=== PATIENT | male | born 1950 | race African-American/Black ===

== ENCOUNTER 2021-08-13 18:02 | Emergency (ER) | payer OTHER ==
[~2021-08-13] VITALS: Ht 172.7 cm; Wt 65.8 kg
--- NOTE | ~2021-08-13 | EMS ---
[facility] [address] [place] [address] EMS Patient Care Report Name: ALAYNA FITCH Room #: DEP NICOLE Chua#: [id number] Admission: 08/13/21 Attend Phys: Discharge: 08/14/21 Date of : 50 Report #: [id number] THIS REPORT FOR: //name// Report Transmitted: 08/15/2021 11:06 EMS Care Summary [place], [place]/[facility] Incident [id number] @ 08/13/2021 17:29 Incident Location [id number] [place] [address] 515 Patient ALAYNA FITCH Male, 70 Years 1950 Patient Address [id number] [place] [address] [address] [place] [address] Patient History Diabetes,Hypertension (HTN),Seizures, Patient Allergies No known allergies, Patient Medications Amlodipine, Potassium, Atorvastatin, Pantoprazole, Humalog, Duloxetine, Lisinopril, Carvedilol, Chief Complaint Tired Disposition Transported No Lights/[place] Dispatch Reason Sick Person Transported To [facility] Narrative Upon arrival PT was sitting in the upright position on bed. [place] staff stated that PT was unable to stand by himself and is showing signs of lethargy. PT [facility] [address] [place] [address] EMS Patient Care Report Name: ALAYNA FITCH Room #: DEP NICOLE Chua#: [id number] Admission: 08/13/21 Attend Phys: Discharge: 08/14/21 Date of : 50 Report #: [id number] stated he was just tired but still agreed to transport. PT was assisted to stretcher and was then taken to back of ambulance for further medical evaluation and intervention. PT was then monitored while en route to hospital for any change in condition. Initial Vitals @17:41P: 111,R: 18,BP: 165/81,Pain: 0/10,GCS: 15,SpO2: 96,Revised Trauma: 12, @17:44P: 107,R: 18,BP: 164/80,Pain: 0/10,GCS: 15,CO: 15,SpO2: 97,Revised Trauma: 12, Assessments @17:36MENTAL:No Abnormalities,SKIN:No Abnormalities,HEENT:Head/Face: No Abnormalities,Eyes: No Abnormalities,Neck/Airway: No Abnormalities,LUNG SOUNDS:General: No Abnormalities,Left Upper: No Abnormalities,Right Upper: No Abnormalities,Left Lower: No Abnormalities,Right Lower: No Abnormalities,ABDOMEN:General: No Abnormalities,Left Upper: No Abnormalities,Right Upper: No Abnormalities,Left Lower: No Abnormalities,Right Lower: No Abnormalities,PELVIS//GI:No Abnormalities,EXTREMITIES:Capillary Refill: Right Upper: < 2 Sec,Capillary Refill: Left Upper: < 2 Sec,PULSE:Radial: 2+ Normal,NEURO:No Abnormalities, Impression Altered Mental Status Procedures @17:36 ALS Assessment Response: UnchangedSucceeded Timeline 17:28,Call Received 17:,Dispatch Notified 17:29,Dispatched 17:29,En Route 17:35,On Scene 17:36,At Patient 17:36,ALS Assessment,Response: UnchangedSucceeded, 17:41,BP: 165/81 M,PULSE: 111,RR: 18 R,SPO2: 96 Ox,ETCO2: ,BG: ,PAIN: 0,GCS: 15, 17:44,BP: 164/80 M,PULSE: 107,RR: 18 R,SPO2: 97 Ox,ETCO2: ,BG: ,PAIN: 0,GCS: 15, 17:46,Depart Scene 17:55,At Destination 18:12,Call Closed Disclaimer v1.1 Copyright 2020 [employer] [facility] [address] [place] [address] EMS Patient Care Report Name: ALAYNA FITCH Room #: DEP Toma#: [id number] Admission: 08/13/21 Attend Phys: Discharge: 08/14/21 Date of : 50 Report #: [id number] This EMS Care Summary contains data elements from the applicable legal record (which may be displayed differently). It is designed to provide pertinent information for the following purposes: continuity of care, clinical quality, and state data reporting. The complete legal record is available to ED staff and administrators of the receiving hospital in [employer]'s Patient Tracker. All data is provided "as is."
[2021-08-13 19:43] LABS: ABSOLUTE NEUTROPHILS 12.3 thou/uL (1.4-8.2); BASOPHILS 0.1 % (0.0-2.0); EOSINOPHILS 0.1 % (0.0-3.0); HEMATOCRIT 30.6 % (42.0-52.0); HEMOGLOBIN 9.9 gm/dL (14.0-18.0); MCH 27.2 pg (26.0-34.0); MCHC 32.2 g/dL (28.0-37.0); MCV 84.5 fL (80.0-100.0); PLATELET COUNT 306 thou/uL (150-400); POLYS 89.8 % (36.0-66.0); RBC 3.62 mil/uL (4.50-6.00); RDW 15.4 % (10.5-14.5); WBC 13.7 thou/uL (4.0-11.0)
[2021-08-13 19:46] LABS: CALCIUM 9.3 mg/dL (8.5-10.1); CREATININE 2.2 mg/dL (0.7-1.3); POTASSIUM 3.5 mmol/L (3.5-5.1)
[2021-08-13 19:55] LABS: URINE BILIRUBIN NEGATIVE (Negative); URINE BLOOD TRACE (Negative); URINE CLARITY CLEAR; URINE COLOR YELLOW; URINE GLUCOSE-RANDOM* NEGATIVE (Negative); URINE KETONES NEGATIVE (Negative); URINE NITRITE-REFLEX NEGATIVE (Negative); URINE PROTEIN (DIPSTICK) TRACE (Negative); URINE SPECIFIC GRAVITY 1.015 (1.005-1.035); URINE UROBILINOGEN 0.2 E.U./dl (0.2-1.0)
[2021-08-13 20:12] LABS: URINE LEUKOCYTES-REFLEX 1+ (Negative)
[2021-08-13 20:19] LABS: BACTERIA-REFLEX 1-9 Few /HPF (None Seen); CASTS None Seen /LPF (None Seen); CRYSTALS None Seen /LPF (None Seen); SQUAMOUS 4-10 Moderate /LPF (0-3); URINE RBC 1-2 Rare /HPF (NONE SEEN); URINE WBC-REFLEX 0-5 Rare /HPF (0-5)
[2021-08-14 00:01] VITALS: BP 179/89
--- NOTE | 2021-08-14 13:24 | EKG ---
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 : 1950 Requested By: Mirza Odonnell Order Number: [id number] MD: Mj Lipscomb Measurements Intervals [place] Rate: 101 P: 84 [place]: 159 QRS: -48 QRSD: 116 T: 86 QT: 379 QTc: 492 Interpretive Statements Sinus tachycardia LVH with IVCD, LAD and secondary repol abnrm Anterior ST elevation, probably due to LVH No previous ECG available for comparison Electronically Signed On 08-14-2021 13:24:37 MANAGER OF HOUSEKEEPING by jM Lipscomb [email or web address] <ELECTRONICALLY SIGNED> By: Mj Lipscomb MD, [facility] 08/14/21 1324 1847 184 Mj Lipscobm MD, FACC /EPI
== END 2021-08-14 00:05 | disposition home or self-care (01) ==
LOC: ER 18:02
PROVIDERS: Emergency Medicine
DX: R50.9 Fever, unspecified (principal); Z20.822 Contact with and (suspected) exposure to COVID-19; R53.1 Weakness; E78.5 Hyperlipidemia, unspecified; I25.10 Atherosclerotic heart disease of native coronary artery without angina pectoris; I12.9 Hypertensive chronic kidney disease with stage 1 through stage 4 chronic kidney disease, or unspecified chronic kidney disease; E11.22 Type 2 diabetes mellitus with diabetic chronic kidney disease; N18.2 Chronic kidney disease, stage 2 (mild)

== ENCOUNTER 2021-09-23 08:23 | Emergency (ER) | payer OTHER ==
[~2021-09-23] VITALS: Ht 170.2 cm; Wt 77.3 kg
--- NOTE | ~2021-09-23 | EMS ---
[address] [address] EMS Patient Care Report Name: ALAYNA FITCH Room #: DEP NICOLE Chua#: [id number] Admission: 09/23/21 Attend Phys: Discharge: 09/23/21 Date of : 50 Report #: [id number] THIS REPORT FOR: //name// Report Transmitted: 09/26/2021 10:14 EMS Care Summary [place], [place]/[facility] Incident [id number] @ 09/23/2021 07:56 Incident Location [address] [place] [address] 515 Patient ALAYNA FITCH Male, 70 Years 1950 Patient Address [address] [place] [address] [address] [place] [address] Patient History Diabetes,Hypertension (HTN),Seizures, Patient Allergies Iodine,Fish allergy,Shrimp allergy, Patient Medications Pantoprazole, Lisinopril, Potassium, Duloxetine, Amlodipine, Atorvastatin, Carvedilol, Humalog, Chief Complaint lips swelling Disposition Transported No Lights/[place] Dispatch Reason Allergic Reaction/Stings Transported To [facility] Narrative M36 dispatched on allergies. M36 arrived to long-term to find PT seated on edge of bed. PT stated lip and tongue swelling as chief complaint. PT stated [address] [address] EMS Patient Care Report Name: ALAYNA FITCH Room #: DEP ER Toma#: [id number] Admission: 09/23/21 Attend Phys: Discharge: 09/23/21 Date of : 50 Report #: [id number] history of fish and shrimp allergies. PT reported eating beef jerky before bed last night. PT stated he woke up with swollen lips around 0530 this morning. [facility] staff stated PT was "given one injection of EPI and benedryl between 5:30 and 6:00." PT reported feeling itchy around neck and upper torso. PT stated pain 8/10. PT stated pain in back. PT stated history of chronic back pain. PT stood and pivoted with cane to stretcher. PT placed surgical mask on self. PT secured with seatbelts. PT vitals monitored during transport. PT report given. PT stood and pivoted to wheelchair without assistance. PT care and belongings transferred to ER staff in Triage at [facility] without incident. M36 placed back in service. Initial Vitals @08:18P: 92,R: 18,BP: 152/76,Pain: 8/10,GCS: 15,CO: 6,SpO2: 97,Revised Trauma: 12, @08:13P: 94,R: 18,BP: 176/93,Pain: 8/10,GCS: 15,CO: 5,SpO2: 98,Revised Trauma: 12, Assessments @08:15MENTAL:Place Oriented,Time Oriented,Event Oriented,Person Oriented,SKIN:HEENT:Head/Face: Swelling,LUNG SOUNDS:ABDOMEN:PELVIS//GI:EXTREMITIES:PULSE:Radial: 2+ Normal,NEURO:Slurred Speech, Impression Allergic Reaction Procedures @08:10 ALS Assessment Response: UnchangedSucceeded Timeline 07:53,Call Received 07:53,Dispatch Notified 07:56,Dispatched 07:58,En Route 08:05,On Scene 08:07,At Patient 08:10,ALS Assessment,Response: UnchangedSucceeded, 08:13,BP: 176/93 M,PULSE: 94,RR: 18 R,SPO2: 98 Ox,ETCO2: ,BG: ,PAIN: 8,GCS: 15, 08:15,Depart Scene 08:18,BP: 152/76 M,PULSE: 92,RR: 18 R,SPO2: 97 Ox,ETCO2: ,BG: ,PAIN: 8,GCS: 15, 08:28,At Destination 08:36,Call Closed Disclaimer [address] [address] EMS Patient Care Report Name: ALAYNA FITCH Room #: DEP Toma#: [id number] Admission: 09/23/21 Attend Phys: Discharge: 09/23/21 Date of : 50 Report #: [id number] v1.1 Copyright 2021 [employer] This EMS Care Summary contains data elements from the applicable legal record (which may be displayed differently). It is designed to provide pertinent information for the following purposes: continuity of care, clinical quality, and state data reporting. The complete legal record is available to ED staff and administrators of the receiving hospital in [employer]'s Patient Tracker. All data is provided "as is."
[2021-09-23] MEDS ORDERED: APAP W/CODEINE1 TA2 PO (08:39)
[2021-09-23] MEDS ORDERED: NORVASC10 MG PO (08:39)
[2021-09-23] MEDS ORDERED: ASA81BEC PO (08:41)
[2021-09-23] MEDS ORDERED: AQUAPHOR HEALIN50 GM TOP (08:41)
[2021-09-23] MEDS ORDERED: FUROSEMIDE 40 M40 MG PO (08:46)
[2021-09-23] MEDS ORDERED: LIPITOR80 MG PO (08:46)
[2021-09-23] MEDS ORDERED: HUMALOG100 UNIT/1 SUBQ (08:47)
[2021-09-23] MEDS ORDERED: GABAPENTIN100 MG PO (08:47)
[2021-09-23] MEDS ORDERED: HYDROCHLOROTHIA25 M1 PO (08:48)
[2021-09-23] MEDS ORDERED: NORCO7.5 PO (08:48)
[2021-09-23] MEDS ORDERED: LANTUS SUBQ (08:49)
[2021-09-23] MEDS ORDERED: METFORMIN HCL500 M3 PO (08:50)
[2021-09-23] MEDS ORDERED: MELATONIN3 M1 PO (08:50)
[2021-09-23] MEDS ORDERED: IMDUR 30 MG TAB30 M1 PO (08:50)
[2021-09-23] MEDS ORDERED: KLOR-CON 1010 MEQ PO (08:51)
[2021-09-23] MEDS ORDERED: PROTONIX40 M3 PO (08:51)
[2021-09-23 13:29] VITALS: BP 170/86
== END 2021-09-23 13:29 | disposition home or self-care (01) ==
LOC: ER 08:23
DX: T78.3XXA Angioneurotic edema, initial encounter (principal); F17.200 Nicotine dependence, unspecified, uncomplicated; Z79.891 Long term (current) use of opiate analgesic; Z79.4 Long term (current) use of insulin; Z79.82 Long term (current) use of aspirin; Z79.899 Other long term (current) drug therapy; Z88.8 Allergy status to other drugs, medicaments and biological substances; Z91.041 Radiographic dye allergy status; Z91.013 Allergy to seafood

== ENCOUNTER 2021-09-30 17:34 | Emergency (ER) | payer OTHER ==
[~2021-09-30] VITALS: Ht 180.3 cm; Wt 78.5 kg
--- NOTE | ~2021-09-30 | EMS ---
[facility] [address] [place] [address] EMS Patient Care Report Name: ALAYNA FITCH Room #: REG NICOLE Chua#: [id number] Admission: 09/30/21 Attend Phys: Discharge: Date of : 50 Report #: [id number] THIS REPORT FOR: //name// Report Transmitted: 09/30/2021 17:42 EMS Care Summary [place], [place]/[facility] Incident [id number] @ 09/30/2021 16:59 Incident Location [id number] [place] [address] RD 515 Patient ALAYNA FITCH Male, 70 Years 1950 Patient Address [id number] [place] [address] [address] [place] [address] Patient History Diabetes,Hypertension (HTN),Seizures, Patient Allergies Iodine,Fish allergy,Shrimp allergy, Patient Medications Atorvastatin, Potassium, Pantoprazole, Humalog, Carvedilol, Duloxetine, Lisinopril, Amlodipine, Chief Complaint altered LOC Disposition Transported No Lights/[place] Dispatch Reason Unconscious/Fainting Transported To [facility] Narrative pt found supine in bed, awakens to sternal rub, diaphoretic. staff reports pt went out w/ friends earlier. he came back and staff was unable to wake pt up [facility] [address] [place] [address] EMS Patient Care Report Name: ALAYNA FITCH Room #: REG NICOLE Chua#: [id number] Admission: 09/30/21 Attend Phys: Discharge: Date of : 50 Report #: [id number] from his afternoon nap. pt is confused, sleeps if undisturbed. he denies illness or rec drug use. he states, "I was just sleeping good". pt is initially confused and does not make any attempt to follow command. tx as listed in flow chart. pt to unit, now able to follow simple commands, denies pain. pupils are constricted but pt denies any rec drug use while out. transport to [facility], report to staff rm 9. Initial Vitals @17:23P: 73,R: 18,BP: 123/72,Pain: 0/10,GCS: 13,Glucose: 176,SpO2: 100,Revised Trauma: 12, @17:26P: 76,R: 18,GCS: 14,SpO2: 100, Assessments @17:09MENTAL:Person Oriented,Confused,Place Oriented,SKIN:Diaphoresis,HEENT:Eyes: Left Pupil: 3-mm,Eyes: Right Pupil: 3-mm,Head/Face: No Abnormalities,LUNG SOUNDS:ABDOMEN:PELVIS//GI:EXTREMITIES:PULSE:Radial: 2+ Normal,NEURO:@17:26MENTAL:Person Oriented,Event Oriented,Place Oriented,SKIN:No Abnormalities,HEENT:LUNG SOUNDS:ABDOMEN:PELVIS//GI:EXTREMITIES:PULSE:NEURO: Impression Altered Mental Status Procedures @17:09 ALS Assessment Response: Unchanged @17:13 Stretcher Response: Unchanged @17:11 3-Lead ECG Response: Unchanged @17:21 IV Therapy - Saline Lock 10cc (20 ga) Site: Hand-Left Response: UnchangedSucceeded Timeline 16:57,Call Received 16:57,Dispatch Notified 16:59,Dispatched 16:59,En Route 17:07,On Scene 17:09,At Patient 17:09,ALS Assessment,Response: Unchanged 17:11,3-Lead ECG,Response: Unchanged 17:13,Stretcher,Response: Unchanged 17:21,IV Therapy - Saline Lock 10cc 20 ga Site: Hand-Left,Response: UnchangedSucceeded, 17:23,BP: 123/72 M,PULSE: 73,RR: 18 R,SPO2: 100 Ox,ETCO2: ,B,PAIN: 0,GCS: 13, 17:23,Depart Scene [address] [address] EMS Patient Care Report Name: ALAYNA FITCH [id number] Admission: 09/30/21 Attend Phys: Discharge: Date of : 50 Report #: [id number] 17:26,BP: / M,PULSE: 76,RR: 18 R,SPO2: 100 Ox,ETCO2: ,BG: ,PAIN: ,GCS: 14, 17:30,At Destination 17:56,Call Closed Disclaimer v1.1 Copyright 2021 [employer] This EMS Care Summary contains data elements from the applicable legal record (which may be displayed differently). It is designed to provide pertinent information for the following purposes: continuity of care, clinical quality, and state data reporting. The complete legal record is available to ED staff and administrators of the receiving hospital in [employer]'s Patient Tracker. All data is provided "as is."
--- NOTE | ~2021-09-30 | EMS ---
[facility] [address] [place] [address] EMS Patient Care Report Name: ALAYNA FITCH Room #: REG NICOLE Chua#: [id number] Admission: 09/30/21 Attend Phys: Discharge: Date of : 50 Report #: [id number] THIS REPORT FOR: //name// Report Transmitted: 09/30/2021 18:45 EMS Care Summary [place], [place]/[facility] Incident [id number] @ 09/30/2021 16:59 Incident Location [id number] [place] [address] [address] Patient ALAYNA FITCH Male, 70 Years 1950 Patient Address [id number] [place] [address] [address] [place] [address] Patient History Diabetes,Hypertension (HTN),Seizures, Patient Allergies Iodine,Fish allergy,Shrimp allergy, Patient Medications Atorvastatin, Potassium, Pantoprazole, Humalog, Carvedilol, Duloxetine, Lisinopril, Amlodipine, Chief Complaint altered LOC Disposition Transported No Lights/[place] Dispatch Reason Unconscious/Fainting Transported To [facility] Narrative pt found supine in bed, awakens to sternal rub, diaphoretic. staff reports pt went out w/ friends earlier. he came back and staff was unable to wake pt up [facility] [address] [place] [address] EMS Patient Care Report Name: ALAYNA FITCH Room #: KYLEIGH Chua#: [id number] Admission: 09/30/21 Attend Phys: Discharge: Date of : 50 Report #: [id number] from his afternoon nap. pt is confused, sleeps if undisturbed. he denies illness or rec drug use. he states, "I was just sleeping good". pt is initially confused and does not make any attempt to follow command. tx as listed in flow chart. pt to unit, now able to follow simple commands, denies pain. pupils are constricted but pt denies any rec drug use while out. transport to [facility], report to staff rm 9. Initial Vitals @17:23P: 73,R: 18,BP: 123/72,Pain: 0/10,GCS: 13,Glucose: 176,SpO2: 100,Revised Trauma: 12, @17:26P: 76,R: 18,GCS: 14,SpO2: 100, Assessments @17:09MENTAL:Person Oriented,Confused,Place Oriented,SKIN:Diaphoresis,HEENT:Eyes: Left Pupil: 3-mm,Eyes: Right Pupil: 3-mm,Head/Face: No Abnormalities,LUNG SOUNDS:ABDOMEN:PELVIS//GI:EXTREMITIES:PULSE:Radial: 2+ Normal,NEURO:@17:26MENTAL:Person Oriented,Event Oriented,Place Oriented,SKIN:No Abnormalities,HEENT:LUNG SOUNDS:ABDOMEN:PELVIS//GI:EXTREMITIES:PULSE:NEURO: Impression Altered Mental Status Procedures @17:09 ALS Assessment Response: Unchanged @17:13 Stretcher Response: Unchanged @17:11 3-Lead ECG Response: Unchanged @17:21 IV Therapy - Saline Lock 10cc (20 ga) Site: Hand-Left Response: UnchangedSucceeded Timeline 16:57,Call Received 16:57,Dispatch Notified 16:59,Dispatched 16:59,En Route 17:07,On Scene 17:09,At Patient 17:09,ALS Assessment,Response: Unchanged 17:11,3-Lead ECG,Response: Unchanged 17:13,Stretcher,Response: Unchanged 17:21,IV Therapy - Saline Lock 10cc 20 ga Site: Hand-Left,Response: UnchangedSucceeded, 17:23,BP: 123/72 M,PULSE: 73,RR: 18 R,SPO2: 100 Ox,ETCO2: ,B,PAIN: 0,GCS: 13, 17:23,Depart Scene [address] [address] EMS Patient Care Report Name: ALAYNA FITCH Room #: REG [place].#: [id number] Admission: 09/30/21 Attend Phys: Discharge: Date of : 50 Report #: [id number] 17:26,BP: / M,PULSE: 76,RR: 18 R,SPO2: 100 Ox,ETCO2: ,BG: ,PAIN: ,GCS: 14, 17:30,At Destination 17:56,Call Closed Disclaimer v1.1 Copyright 2021 [employer] This EMS Care Summary contains data elements from the applicable legal record (which may be displayed differently). It is designed to provide pertinent information for the following purposes: continuity of care, clinical quality, and state data reporting. The complete legal record is available to ED staff and administrators of the receiving hospital in [facility]'s Patient Tracker. All data is provided "as is."
[~2021-09-30 17:34] MED LIST: APAP W/CODEINE1 TA2 PO; AQUAPHOR HEALIN50 GM TOP; ASA81BEC PO; FUROSEMIDE 40 M40 MG PO; GABAPENTIN100 MG PO; HUMALOG100 UNIT/1 SUBQ; HYDROCHLOROTHIA25 M1 PO; IMDUR 30 MG TAB30 M1 PO; KLOR-CON 1010 MEQ PO; LANTUS SUBQ; LIPITOR80 MG PO; MELATONIN3 M1 PO; METFORMIN HCL500 M3 PO; NORCO7.5 PO; NORVASC10 MG PO; PROTONIX40 M3 PO
[2021-09-30] MEDS ORDERED: LISINOPRIL20 MG PO (18:17)
[2021-09-30 18:20] LABS: ABSOLUTE NEUTROPHILS 5.6 thou/uL (1.4-8.2); BASOPHILS 0.3 % (0.0-2.0); EOSINOPHILS 0.9 % (0.0-3.0); HEMATOCRIT 29.2 % (42.0-52.0); HEMOGLOBIN 9.5 gm/dL (14.0-18.0); LYMPHOCYTES 25.7 % (24.0-44.0); MCH 26.6 pg (26.0-34.0); MCHC 32.7 g/dL (28.0-37.0); MCV 81.1 fL (80.0-100.0); MONOCYTES 6.7 % (1.0-8.0); PLATELET COUNT 346 thou/uL (150-400); POLYS 66.4 % (36.0-66.0); RBC 3.59 mil/uL (4.50-6.00); RDW 16.2 % (10.5-14.5); WBC 8.5 thou/uL (4.0-11.0)
[2021-09-30 18:25] LABS: POTASSIUM 3.9 mmol/L (3.5-5.1)
[2021-09-30 18:35] LABS: ALBUMIN 3.5 g/dL (3.4-5.0); TOTAL BILIRUBIN 0.3 mg/dL (0.2-1.0); TOTAL PROTEIN 7.8 g/dL (6.4-8.2)
[2021-09-30 19:37] VITALS: BP 123/70
[2021-09-30] MEDS ORDERED: PAIN RELIEVER325 MG PO (19:49)
[2021-09-30] MEDS ORDERED: BENADRYL25 MG PO (19:50)
[2021-09-30] MEDS ORDERED: ZOFRAN ODT4 MG PO (20:42)
--- NOTE | 2021-10-01 07:52 | EKG ---
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 Filler: Eris PATEL : 1950 Requested By: Naya Mendoza Order Number: [id number] MD: Mj Lipscomb Measurements Intervals [place] Rate: 85 P: 18 [place]: 149 QRS: -45 QRSD: 120 T: 81 QT: 396 QTc: 471 Interpretive Statements Sinus rhythm Probable left atrial enlargement Borderline ST elevation, anterior leads Compared to ECG 08/13/2021 18:47:19 Intraventricular conduction delay no longer present Left ventricular hypertrophy no longer present Early repolarization no longer present ST (T wave) deviation still present Electronically Signed On 10-01-2021 7:52:05 COMPRESSOR OPERATOR ADJUSTER by Mj Lipscomb [email or web address] <ELECTRONICALLY SIGNED> By: Mj Lipscomb MD, FACC 10/01/21 0752 1750 1750 Mj Lipscomb MD, FAC /EPI
== END 2021-09-30 21:50 ==
LOC: ER 17:34
PROVIDERS: Physician Assistant
DX: R11.10 Vomiting, unspecified (principal); Z20.822 Contact with and (suspected) exposure to COVID-19; N18.9 Chronic kidney disease, unspecified; K44.9 Diaphragmatic hernia without obstruction or gangrene; Z79.82 Long term (current) use of aspirin; Z79.4 Long term (current) use of insulin; Z79.891 Long term (current) use of opiate analgesic; Z79.899 Other long term (current) drug therapy; Z91.041 Radiographic dye allergy status; Z91.018 Allergy to other foods; Z91.013 Allergy to seafood

== ENCOUNTER 2021-10-12 08:42 | Emergency (ER) | payer OTHER ==
[~2021-10-12] VITALS: Ht 177.8 cm; Wt 81.7 kg
--- NOTE | ~2021-10-12 | EMS ---
[facility] [address] [place] [address] EMS Patient Care Report Name: ALAYNA FITCH Room #: REG NICOLE Chua#: [id number] Admission: 10/12/21 Attend Phys: Discharge: Date of : 50 Report #: [id number] THIS REPORT FOR: //name// Report Transmitted: 10/12/2021 11:00 EMS Care Summary [place], [place]/[facility] Incident [id number] @ 10/12/2021 08:15 Incident Location [id number] [place] [address] 515 Patient ALAYNA FITCH Male, 70 Years 1950 Patient Address [address] [place] [address] [address] [place] [address] Patient History Diabetes,Hypertension (HTN),Seizures,Chronic Kidney Disease, Patient Allergies Iodine,Fish allergy,Shrimp allergy, Patient Medications Carvedilol, Lisinopril, Duloxetine, Atorvastatin, Pantoprazole, Potassium, Amlodipine, Humalog, Chief Complaint R arm pain/tingling Disposition Transported No Lights/[place] Dispatch Reason Stroke/CVA Transported To [facility] Narrative pt found ambulatory in his room. pt is a&o per norm. [place] staff states pt wants eval in ER "because he feels like he had a stroke coming on". nurse [facility] [address] [place] [address] EMS Patient Care Report Name: ALAYNA FITCH Room #: REG Toma#: [id number] Admission: 10/12/21 Attend Phys: Discharge: Date of : 50 Report #: [id number] practitioner was in and examined pt and saw no evidence of stroke. pt would like ER eval regardless. pt to cot, tx as listed in flow chart. transport w/o change. report to staff rm 4. Initial Vitals @08:37P: 88,R: 18,BP: 186/95,Pain: 8/10,GCS: 15,Glucose: 99,SpO2: 97,Revised Trauma: 12, Assessments @08:22MENTAL:No Abnormalities,SKIN:No Abnormalities,HEENT:Head/Face: Other,LUNG SOUNDS:ABDOMEN:PELVIS//GI:EXTREMITIES:PULSE:Radial: 2+ Normal,NEURO:Other, Impression Extremity Pain Procedures @08:22 ALS Assessment @08:25 Stretcher Response: Unchanged @08:28 3-Lead ECG Response: Unchanged Timeline 08:13,Call Received 08:13,Dispatch Notified 08:15,Dispatched 08:15,En Route 08:21,On Scene 08:22,At Patient 08:22,ALS Assessment, 08:25,Stretcher,Response: Unchanged 08:28,3-Lead ECG,Response: Unchanged 08:31,Depart Scene 08:37,BP: 186/95 M,PULSE: 88,RR: 18 R,SPO2: 97 Ox,ETCO2: ,B,PAIN: 8,GCS: 15, 08:38,At Destination 08:56,Call Closed Disclaimer v1.1 Copyright 2021 [email or web address] This EMS Care Summary contains data elements from the applicable legal record (which may be displayed differently). It is designed to provide pertinent information for the following purposes: continuity of care, clinical quality, and state data reporting. The complete legal record is available to ED staff and administrators of the receiving hospital in [facility]'s Patient Tracker. All data is provided "as is."
[~2021-10-12 08:42] MED LIST changes: +BENADRYL25 MG PO; +LISINOPRIL20 MG PO; +PAIN RELIEVER325 MG PO; +ZOFRAN ODT4 MG PO
[2021-10-12 09:49] LABS: CALCIUM 9.1 mg/dL (8.5-10.1); CREATININE 2.6 mg/dL (0.7-1.3); POTASSIUM 3.7 mmol/L (3.5-5.1)
[2021-10-12 09:56] LABS: BASOPHILS 0.7 % (0.0-2.0); EOSINOPHILS 2.7 % (0.0-3.0); HEMATOCRIT 30.5 % (42.0-52.0); LYMPHOCYTES 25.1 % (24.0-44.0); MCH 26.2 pg (26.0-34.0); MCHC 32.8 g/dL (28.0-37.0); MCV 79.8 fL (80.0-100.0); MONOCYTES 7.9 % (1.0-8.0); PLATELET COUNT 246 thou/uL (150-400); POLYS 63.6 % (36.0-66.0); RBC 3.82 mil/uL (4.50-6.00); RDW 16.7 % (10.5-14.5); WBC 4.8 thou/uL (4.0-11.0)
[2021-10-12 09:59] LABS: ALBUMIN 3.5 g/dL (3.4-5.0); MAGNESIUM 2.2 mg/dL (1.8-2.4); TOTAL BILIRUBIN 0.3 mg/dL (0.2-1.0); TOTAL PROTEIN 7.9 g/dL (6.4-8.2)
[2021-10-12] MEDS ORDERED: MELOXICAM15 MG PO (12:08)
[2021-10-12 12:33] VITALS: BP 158/87
--- NOTE | 2021-10-12 13:39 | EKG ---
[facility] [place] [address] ELECTROCARDIOGRAM REPORT Name: ALAYNA FITCH Room #: DEB Chua#: [id number] Admission: 10/12/21 Attend Phys: Discharge: 10/12/21 Date of : 50 Report #: [id number] [facility] ED Test Date: 2021-10-12 Test Time: 08:50:33 Pat Name: ALAYNA FITCH Department: Room: Gender: M Batch Room Technician: GREGORIO : 1950 Requested By: Paz Kelly Order Number: [id number] MD: Mj Lipscomb Measurements Intervals [place] Rate: 83 P: 62 [place]: 185 QRS: -47 QRSD: 119 T: 74 QT: 392 QTc: 461 Interpretive Statements Sinus rhythm Incomplete left bundle branch block Left ventricular hypertrophy Inferior infarct, old Anterior ST elevation, probably due to LVH Compared to ECG 09/30/2021 17:50:37 Left bundle-branch block now present Left ventricular hypertrophy now present Myocardial infarct finding now present ST (T wave) deviation still present Electronically Signed On 10-12-2021 13:39:15 TALENT ACQUISITION PARTNER by Mj Lipscomb [email or web address] <ELECTRONICALLY SIGNED> By: Mj Lipscomb MD, FAC 10/12/21 1339 0850 0850 Mj Lipscomb MD, [facility] /EPI
== END 2021-10-12 12:34 ==
LOC: ER 08:42
PROVIDERS: Emergency Medicine
DX: M54.12 Radiculopathy, cervical region (principal); Z79.899 Other long term (current) drug therapy; Z91.02 Food additives allergy status; Z91.013 Allergy to seafood